=== PATIENT | female | born 1970 | race Caucasian/White ===

== ENCOUNTER → 2023-09-15 16:44 | Outpatient (REF) | payer OTHER, SELFPAY | LOC: HWWDC 16:44 | PROVIDERS: ATTENDING PHYSICIAN Surgery; FAMILY PHYSICIAN Physician Assistant Medical | DX: Z12.31 Encounter for screening mammogram for malignant neoplasm of breast (principal) | CPT/HCPCS: 77063; 77067 ==

== ENCOUNTER → 2023-09-22 10:34 | Outpatient (REF) | payer OTHER, SELFPAY | LOC: WDC 10:34 | PROVIDERS: ATTENDING PHYSICIAN Surgery; FAMILY PHYSICIAN Physician Assistant Medical | DX: R92.8 Other abnormal and inconclusive findings on diagnostic imaging of breast (principal) | CPT/HCPCS: 76642 ==

== ENCOUNTER → 2023-10-12 16:27 | Outpatient (REF) | payer OTHER, SELFPAY | LOC: MRI 3T 16:27 | PROVIDERS: ATTENDING PHYSICIAN Surgery; FAMILY PHYSICIAN Physician Assistant Medical | DX: N60.91 Unspecified benign mammary dysplasia of right breast (principal); D05.01 Lobular carcinoma in situ of right breast | CPT/HCPCS: 77049; A9585 ==

== ENCOUNTER → 2023-11-23 16:55 | Outpatient (REF) | payer OTHER, SELFPAY | LOC: RAD 16:55 | PROVIDERS: ATTENDING PHYSICIAN Nurse Practitioner Adult Health; FAMILY PHYSICIAN Physician Assistant Medical | DX: R10.2 Pelvic and perineal pain (principal) | CPT/HCPCS: 76830; 76856 ==

== ENCOUNTER → 2024-06-22 13:20 | Outpatient (REF) | payer OTHER, SELFPAY | LOC: HWRAD 13:20 | PROVIDERS: ATTENDING PHYSICIAN Nurse Practitioner Adult Health; FAMILY PHYSICIAN Physician Assistant Medical | DX: N39.9 Disorder of urinary system, unspecified (principal); R10.2 Pelvic and perineal pain | CPT/HCPCS: 76830; 76856 ==

== ENCOUNTER → 2024-09-09 15:23 | Outpatient (REF) | payer OTHER, SELFPAY | LOC: RCS 15:23 | PROVIDERS: ATTENDING PHYSICIAN Obstetrics & Gynecology Gynecology; FAMILY PHYSICIAN Physician Assistant Medical | DX: Z01.810 Encounter for preprocedural cardiovascular examination (principal) | CPT/HCPCS: 93005 ==

== ENCOUNTER → 2024-09-23 08:15 | Outpatient (REF) | payer OTHER, SELFPAY | LOC: CLAB 08:15 | PROVIDERS: ATTENDING PHYSICIAN Obstetrics & Gynecology Gynecology | DX: N39.9 Disorder of urinary system, unspecified (principal) | CPT/HCPCS: 88305 ==

== ENCOUNTER → 2024-11-02 10:37 | Outpatient (REF) | payer OTHER, SELFPAY | LOC: HWWDC 10:37 | PROVIDERS: ATTENDING PHYSICIAN Nurse Practitioner Adult Health; FAMILY PHYSICIAN Physician Assistant Medical | DX: Z12.31 Encounter for screening mammogram for malignant neoplasm of breast (principal) | CPT/HCPCS: 77063; 77067 ==

== ENCOUNTER → 2025-01-13 11:06 | Outpatient (REF) | payer OTHER, SELFPAY | LOC: RAD 11:06 | PROVIDERS: ATTENDING PHYSICIAN Physician Assistant Medical | DX: R07.9 Chest pain, unspecified (principal); R07.89 Other chest pain | CPT/HCPCS: 71101 ==

== ENCOUNTER → 2025-02-02 07:09 | Outpatient (REF) | payer OTHER, SELFPAY ==
[2025-02-02 10:00] LABS: ALT (SGPT) 26 U/L (0-35); AST (SGOT) 28 U/L (14-36); Albumin 4.5 g/dl (3.5-5.0); Alkaline Phosphatase 96 U/L (38-126); Amylase 59 U/L (30-110); Blood Urea Nitrogen 16 mg/dl (7-17); Calcium 9.7 mg/dl (8.4-10.2); Carbon Dioxide 26 mmol/L (22-30); Chloride 106 mmol/L (98-107); Glucose 96 mg/dl (70-99); Lipase 88 U/L (23-300); Potassium 5.0 mmol/L (3.5-5.1); Sodium 136 mmol/L (135-145); Total Protein 7.6 g/dl (6.3-8.2); eGFR > 60.00
== END ==
LOC: HWRAD 07:09
PROVIDERS: ATTENDING PHYSICIAN Physician Assistant Medical
DX: R10.12 Left upper quadrant pain (principal)
CPT/HCPCS: 36415; 76700; 80053; 82150; 83690